=== PATIENT | female | born 2000 | race Hispanic/Latino ===

== ENCOUNTER 2025-01-20 18:04 | Emergency (ER) | payer OTHER ==
[~2025-01-20] VITALS: Ht 170.2 cm; Wt 102.5 kg
[2025-01-20] MEDS ORDERED: LARIN FE 1.5-31 EACH PO (19:02)
[2025-01-20] MEDS ORDERED: DROSPIRENONE-E1 EACH PO (19:02)
[2025-01-20] MEDS ORDERED: METFORMIN HCL500 M1 PO (19:02)
[2025-01-20] MEDS ORDERED: FEROSUL325 MG PO (19:02)
[2025-01-20 20:27] VITALS: BP 152/92
[2025-01-22 13:01] LABS: HEPATITIS A ANTIBODY, IGM Negative (Negative); HEPATITIS C AB CIA INTERP Negative (Negative); HEPATITIS C ANTIBODY CIA INDEX 0.03 IV (())
[2025-01-22 13:27] LABS: HIV 1,2 COMBO ANTIGEN/ANTIBODY Negative (Negative)
== END 2025-01-20 20:28 | disposition home or self-care (01) ==
LOC: ED 18:04
PROVIDERS: Internal Medicine
DX: Z77.21 Contact with and (suspected) exposure to potentially hazardous body fluids (principal); Z79.84 Long term (current) use of oral hypoglycemic drugs; Z79.899 Other long term (current) drug therapy
CPT/HCPCS: 36415; 80074; 99283